=== PATIENT | male | born 1995 | race Caucasian/White ===

== ENCOUNTER 2020-09-16 12:08 | Outpatient (REF) | payer OTHER, SELFPAY | END 2020-09-16 12:09 | disposition home or self-care (01) | LOC: HO.LAB 12:08 | PROVIDERS: PCP Internal Medicine; Visit Provider Internal Medicine | DX: Z20.828 Contact with and (suspected) exposure to other viral communicable diseases (principal) | CPT/HCPCS: C9803; U0003 ==

== ENCOUNTER 2025-05-21 12:34 | Outpatient (AMB) | payer BC, OTHER, SELFPAY ==
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
[2025-05-21 12:41] VITALS: BP 152/88; PULSE 78; RESP 18; TEMP 36.2; O2SAT 97; BMI 31.2
--- OUTSIDE RECORDS SUMMARY | 2025-05-21 15:02 | XMS_ITS | Clinical Summary ---
Author Organization [facility] Address [address] [place], [place] [address] Phone Care Team Providers Care Personnel Monitor Name Role Phone Pcp, Unknown Primary Care Provider Unavailabl e Allergies No known active allergies Medications No known medications Social History Tobacco Use Types Packs/Day Years Used Date Smoking Tobacco: Never Smokeless Tobacco: Never Alcohol Use Standard Drinks/Week Comments Yes 0 (1 standard drink = 0.6 oz pur e alcohol) Education Answer Date Recorded Are you interested in more education? Not on myrna e 01/13/2023 Are you concerned about learning? Not on file 01/13/2023 No 01/13/2023 No 01/13/2023 Digital Access Answer Date Recorded No 02/11/2023 No 02/11/2023 No 02/11/2023 Reliable internet access at home? Not on file 02/11/2023 Device with a working camera? Not on file Sex and Gender Information Value Date Recorded Sex Assigned at Male 10/26/2018 1:43 PM EST Legal Sex Male 1:36 PM EST Gender Identity Male 10/26/2018 1:43 PM EST Sexual Orientation Lesbian or Flannery 10/26/2018 1: 43 PM EST Last Filed Vital Signs Vital Sign Reading Time Taken Comments Blood Pressure 150/99 10/26/2018 1:44 PM EST Pulse 76 10/26/2018 1:44 PM EST Temperature 37 C (98.6 F) 10/26/2018 1:44 PM EST Respiratory Rate 16 10/26/2018 1:44 PM EST Oxygen Saturation 99% 10/26/2018 1:44 PM EST Inhaled Oxygen Concentration - - Weight 79.4 kg (175 lb) 10/26/2018 1:44 PM EST Height 182.9 cm (6') 10/26/2018 1:44 PM EST Body Mass Index 23.73 10/26/2018 1:44 PM EST Plan of Treatment Health Maintenance Due Date Last Done Comments Adult Td,Tdap Booster 1996 DEPRESSION SCREENING 2008 HEPATITIS C SCREENING 01/18/2014 HIV ONE-TIME SCREENING (18-6 5 YEARS) 01/18/2014 SMOKING STATUS SCREENING (On ce After 26 Yrs) 01/18/2022 INFLUENZA VACCINE (#1) 2025 0, 06/09/2015 COVID-19 VACCINE (2 - 2024-2 6 season) 2025 12/31/2020 HEPATITIS A VACCINES Aged Out No long er eligible based on patient's age to complete this topic HIB VACCINES Aged Out No longer eligi ble based on patient's age to complete this topic MENINGOCOCCAL VACCINES (ACWY) Aged Out No longer eligible based on patient's age to complete this topic MENINGOCOCCAL VACCINES (B) Aged Out N o longer eligible based on patient's age to complete this topic PNEUMOCOCCAL VACCINES (0-49 years) Aged Out No longer eligible b ased on patient's age to complete this topic Medical Devices Not on file Insurance [id number] PPO [id number] PPO [employer] PASSPORT PPO [employer] PASSPORT PPO [employer] PASSPORT PPO [employer] PAS[employer]ORT PPO [employer] PPO [employer] PPO [facility] PASSPORT PPO Care Teams Personnel Monitor Relationship Specialty Start Date End Date Pcp, Unknown PCP - General 04/21/21 Additional Source Comments The information contained in this document represents components of the legal health record. It is not the complete legal health record.[facility]
== END 2025-05-21 13:28 | disposition home or self-care (01) ==
LOC: HO.HMCH 12:35
PROVIDERS: PCP Internal Medicine
DX: Z76.89 Persons encountering health services in other specified circumstances (principal); R03.0 Elevated blood-pressure reading, without diagnosis of hypertension

== ENCOUNTER → 2025-05-21 12:34 | Outpatient (BNVA) | payer BC, OTHER, SELFPAY | PROVIDERS: PCP Internal Medicine | DX: R03.0 Elevated blood-pressure reading, without diagnosis of hypertension (principal); Z76.89 Persons encountering health services in other specified circumstances | CPT/HCPCS: 96127 ==

== ENCOUNTER 2025-07-02 12:10 | Outpatient (REF) | payer BC, SELFPAY ==
[2025-07-02 12:45] LABS: MANUAL DIFF FLAG NO
[2025-07-02 12:53] LABS: Hematocrit 45.5 % (42.0-52.0); Hemoglobin 14.9 g/dl (14.0-18.0); Imm Gran Abs Auto 0.01 X10*3/uL (0.00-0.03); Imm Gran Pct Auto 0.2 % (0.0-0.4); Lymphocytes Absolute Auto 1.6 X10*3/uL (1.2-4.9); Mean Corpuscular HGB Conc 32.7 g/dl (31.0-36.0); Mean Corpuscular Hemoglobin 27.3 pg (27.0-33.0); Mean Corpuscular Volume 83.5 fL (80.0-98.0); NRBC Abs Auto 0.000 X10*3/uL (0.0-0.012); NRBC Pct Auto 0.0 /100WBC (0.0-0.2); Platelet Count 183 X10*3/uL (160-400); Red Blood Count 5.45 X10*6/uL (4.60-5.80); White Blood Count 4.5 X10*3/uL (4.8-10.8)
[2025-07-02 14:20] LABS: Alanine Aminotransferase 33 U/L (0-40); Albumin Level 4.8 g/dL (3.5-5.0); Alkaline Phosphatase 70 U/L (39-117); Anion Gap 10 (12-20); Aspartate Amino Transferase 25 U/L (5-37); Blood Urea Nitrogen 13 mg/dL (9-16); Calcium 9.5 mg/dL (8.4-10.2); Carbon Dioxide 27 mmol/L (22-29); Chloride 107 mmol/L (96-108); Cholesterol 198 mg/dL (<200); Estimated Glomerular Filt Rate > 60; HDL Cholesterol 48 mg/dL (>40); Potassium 4.2 mmol/L (3.3-5.1); Sodium 140 mmol/L (135-145); Total Protein 7.7 g/dL (6.5-8.0); Triglycerides 61 mg/dL (<150)
[2025-07-02 14:20] LABS: Appearance Urine Clear; Glucose Urine UA Negative (Negative); PH 7.0 (5.0-9.0); Specific Gravity - Urine 1.015 (1.005-1.025)
--- OUTSIDE RECORDS SUMMARY | 2025-07-02 15:32 | XMS_ITS | Encounter Summary ---
Author Organization [facility] Address [address] [place] [phone] Phone Care Team Providers Care Programmer Numerical Control Name Role Phone Unavailable Primary Care Provider Unavailabl e Encounter Details Date Type Department Care Team (Late st Contact Info) Description 02/04/2018 Conversion Encounter [facility] [address] [address] Social History Tobacco Use Types Packs/Day Years Used Date Smoking Tobacco: Never Assessed Sex and Gender Information Value Date Recorded Sex Assigned at Not on file Legal Sex Male 6:09 PM EDT Gender Identity Not on file Sexual Orientation Not on file documented as of this encounter Plan of Treatment Not on file documented as of this encounter Visit Diagnoses Not on filedocumented in this encounter
--- OUTSIDE RECORDS SUMMARY | 2025-07-02 15:32 | XMS_ITS | Clinical Summary ---
Author Organization [facility] Address [address] [place], [place] [id number] Phone Care Team Providers Care Hot Dip Galvanizer Name Role Phone Unavailable Primary Care Provider Unavailabl e Immunizations Immunization Administration Dates Next Due DTaP 03/12/2001, 7,1996, 996,1996 Hep B, ped/adol 1996,1996,1996 Hib (PRP-T) 07/10/1997, 6,1996, 996 IPV 03/12/2001, 6,1996, 996 Influenza, injectable, quadrivalent 06/22/2013,1 ,06/04/2009 MMR 03/12/2001,01/20/1997 Meningococcal Conj (Menactra) MCV4P 10/23/2012,0 05/15/2008 Tdap 05/10/2007 Family History Relation Name Status Comments Father Alive Maternal Grandfather Alive Maternal Grandmother Alive Mother Alive Other Alive Siblings: healt hy brother and sister 90, 91 Paternal Grandfather Alive Paternal Grandmother DM Social History Tobacco Use Types Packs/Day Years Used Date Smoking Tobacco: Never Assessed Sex and Gender Information Value Date Recorded Sex Assigned at Not on file Legal Sex Male 6:09 PM EDT Gender Identity Not on file Sexual Orientation Not on file Last Filed Vital Signs Vital Sign Reading Time Taken Comments Blood Pressure 130/78 10/30/2012 12:00 AM EST Pulse 93 12/23/2009 12:00 AM EDT Temperature 37.1 C (98.7 F) 10/16/2012 12:00 AM EST Respiratory Rate - - Oxygen Saturation 97% 12/23/2009 12:00 AM EDT Inhaled Oxygen Concentration - - Weight 97.8 kg (215 lb 9.6 oz) 10/30/2012 12:00 AM EST Height 181.6 cm (5' 11.5 ) 10/30/2012 12:[address] Body Mass Index 29.65 10/30/2012 12:00 AM EST Plan of Treatment Health Maintenance Due Date Last Done Comments Varicella Vaccines (1 of 2 - 13+ 2-dose series) 01/18/2009 DTaP,Tdap,and Td Vaccines (7 - Td or Tdap) 05/10/2017 05/10/2007, 03/12/2001, 07/10/1997, Additional history exists HPV Vaccines (1 - 3-dose SCDM series) 01/18/2023 Influenza Vaccines (#1) 2025 06/22/20 13, 06/22/2011, 06/04/2009 COVID-19 Vaccine (2024- season) 2025 Hepatitis B Vaccines Completed 1996, 1996, 1996 HIB Vaccines Completed 07/10/1997, 12/1995, 1996, Additional history exists IPV Vaccines Completed 03/12/2001, 12/1995, 1996, Additional history exists MMR Vaccines Completed 03/12/2001, 01/20/1997 Meningococcal Vaccine Completed 10/23/2012, 008 Hepatitis A Vaccines Aged Out No long er eligible based on patient's age to complete this topic Men B Vaccine Aged Out No longer elig ible based on patient's age to complete this topic Pneumococcal Vaccine Aged Out No long er eligible based on patient's age to complete this topic
--- OUTSIDE RECORDS SUMMARY | 2025-07-02 15:32 | XMS_ITS | Clinical Summary ---
Author Organization [facility] Address [address] [place], [place] [id number] Phone Care Team Providers Care Dive Superintendent Name Role Phone Pcp, Unknown Primary Care [...] topic Medical Devices Not on file Insurance [employer] PPO [employer] P[employer] PASSPORT PPO [employer] PASSPORT PPO [employer] PASSPORT PPO [employer] PPO [employer] PPO [employer] PPO [facility] PASSPORT PPO Care Teams Dive Superintendent Relationship Specialty Start Date End Date Pcp, Unknown PCP - General 04/21/21 Additional Source Comments The information contained in this document represents components of the legal health record. It is not the complete legal health record.[facility]
== END 2025-07-02 12:11 | disposition home or self-care (01) ==
LOC: HO.LAB 12:10
DX: Z00.00 Encounter for general adult medical examination without abnormal findings (principal); Z13.29 Encounter for screening for other suspected endocrine disorder; Z13.6 Encounter for screening for cardiovascular disorders
CPT/HCPCS: 36415; 80053; 80061; 81003; 82306; 84443; 85025

== ENCOUNTER 2025-07-16 08:24 | Outpatient (AMB) | payer BC, OTHER, SELFPAY ==
[2025-07-16 08:32] VITALS: BP 138/88; PULSE 84; RESP 16; TEMP 36.2; O2SAT 99; BMI 30.8
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
--- OUTSIDE RECORDS SUMMARY | 2025-07-16 08:56 | XMS_ITS | Encounter Summary ---
Author Organization [facility] Address [address] [place] [phone] Phone Care Team Providers Care Loan Representative Name Role Phone Unavailable Primary Care Provider Unavailabl e Encounter Details Date Type Department Care Team (Late st Contact Info) Description 02/04/2018 Conversion Encounter [facility] [address] [address] Social History Tobacco Use Types Packs/Day Years [...]
--- OUTSIDE RECORDS SUMMARY | 2025-07-16 08:56 | XMS_ITS | Clinical Summary ---
Author Organization [facility] Address [address] [place], [place] [id number] Phone Care Team Providers Care Candy Separator Hard Name Role Phone Unavailable Primary Care Provider [...]
--- OUTSIDE RECORDS SUMMARY | 2025-07-16 08:56 | XMS_ITS | Clinical Summary ---
Author Organization [facility] Address [address] [place], [place] [id number] Phone Care Team Providers Care Body Cleaner Name Role Phone Pcp, Unknown Primary Care [...] topic Medical Devices Not on file Insurance [employer] PPO [employer] PPO [email or web address]ORT PPO [email or web address] PAS[employer]ORT PPO [employer] PASSPORT PPO [employer] PPO [employer] PPO [employer] PPO [facility] PASSPORT PPO Care Teams Body Cleaner Relationship Specialty Start Date End Date Pcp, Unknown PCP - General 04/21/21 Additional Source Comments The information contained in this document represents components of the legal health record. It is not the complete legal health record.[facility]
== END 2025-07-16 09:12 | disposition home or self-care (01) ==
DX: Z00.00 Encounter for general adult medical examination without abnormal findings (principal); R03.0 Elevated blood-pressure reading, without diagnosis of hypertension; S05.8X2A Other injuries of left eye and orbit, initial encounter; H61.23 Impacted cerumen, bilateral; R73.01 Impaired fasting glucose; E78.00 Pure hypercholesterolemia, unspecified; Z23 Encounter for immunization

== ENCOUNTER → 2025-07-16 08:24 | Outpatient (BNVA) | payer BC, OTHER, SELFPAY | PROVIDERS: PCP Internal Medicine | DX: Z00.00 Encounter for general adult medical examination without abnormal findings (principal); R03.0 Elevated blood-pressure reading, without diagnosis of hypertension; H61.23 Impacted cerumen, bilateral; R73.01 Impaired fasting glucose; E78.00 Pure hypercholesterolemia, unspecified; S05.8X2A Other injuries of left eye and orbit, initial encounter; X58.XXXA Exposure to other specified factors, initial encounter; Y93.9 Activity, unspecified; Y92.9 Unspecified place or not applicable; Y99.9 Unspecified external cause status; Z23 Encounter for immunization; Z56.3 Stressful work schedule | CPT/HCPCS: 90471; 90714; 96127 ==